=== PATIENT | female | born 1990 | race Caucasian/White ===

== ENCOUNTER 2020-06-07 17:23 | Day surgery (SDCO) | payer OTHER ==
[2020-06-07 19:36] LABS: BASOPHIL 0.6 % (0-2); EOSINOPHIL 2.8 % (0-5); HCT 41.5 % (37.0-47.0); HGB 12.9 g/dl (12.5-16.0); MCH 25.6 pg (25.0-31.0); MCHC 31.1 g/dL (32.0-36.0); MCV 82.3 fL (78.0-100.0); MONOCYTE 6.8 % (0-12); MPV 10.8 fL (6.0-9.5); NEUTROPHIL 62.5 % (41-80); NRBC 0; PLT 381 K/uL (150-400); RBC 5.04 M/uL (4.20-5.40); RDW 15.2 % (11.5-14.0); WBC 10.3 K/uL (4.0-10.5)
[2020-06-07 19:53] LABS: LACTIC ACID 1.4 mmol/L (0.4-1.9)
[2020-06-07 20:02] LABS: ALBUMIN 3.8 g/dL (3.4-5.0); BILIRUBIN - TOTAL 0.3 mg/dL (0.2-1.0); BUN/CREAT RATIO (CALC) 14.1 RATIO; C-REACTIVE PROTEIN 0.9 mg/dL (<=0.90); CREATININE 0.78 mg/dL (0.51-0.95); GLOBULIN (CALCULATION) 3.7 g/dL; POTASSIUM 3.5 mmol/L (3.5-5.1); TOTAL PROTEIN 7.5 g/dL (6.4-8.2)
[2020-06-07 20:03] LABS: BILIRUBIN NEGATIVE (NEGATIVE); BLOOD TRACE-INTACT Ery/uL (NEGATIVE); CLARITY CLEAR (CLEAR); COLOR YELLOW (YELLOW); GLUCOSE (U) NORMAL (NORMAL); LEUKOCYTES NEGATIVE Leu/uL (NEGATIVE); NITRITE NEGATIVE (NEGATIVE); PROTEIN NEGATIVE (NEGATIVE); SPECIFIC GRAVITY <=1.005 (1.001-1.030); UROBILINOGEN 0.2 mg/dL (0.2-1.0)
[2020-06-07 20:09] LABS: SQUAMOUS EPITHELIAL CELLS RARE; URINARY RBC RARE
[2020-06-07 20:47] LABS: CORONAVIRUS 2019 SARS-COV-2 NEGATIVE (NEGATIVE); INFLUENZA A NAA NEGATIVE (NEGATIVE)
[2020-06-08 00:39] LABS: FT4 (FREE T4) 0.9 ng/dL (0.76-1.46)
[2020-06-08] MEDS ORDERED: LEVOTHYROXINE200 MC1 PO (04:19)
[2020-06-08] MEDS ORDERED: INDERAL20 MG PO (04:25)
[2020-06-08 06:25] LABS: BASOPHIL 0.5 % (0-2); EOSINOPHIL 3.6 % (0-5); HCT 37.3 % (37.0-47.0); HGB 11.5 g/dl (12.5-16.0); LYMPHOCYTE 31.3 % (15-48); MCH 25.3 pg (25.0-31.0); MCHC 30.8 g/dL (32.0-36.0); MCV 82.2 fL (78.0-100.0); MONOCYTE 6.8 % (0-12); MPV 10.5 fL (6.0-9.5); NEUTROPHIL 57.5 % (41-80); NRBC 0; PLT 326 K/uL (150-400); RBC 4.54 M/uL (4.20-5.40); RDW 15.1 % (11.5-14.0); WBC 11.4 K/uL (4.0-10.5)
[2020-06-08 06:46] LABS: IRON % SATURATION 6.7 %SAT (20-50)
[2020-06-08 06:51] LABS: ALBUMIN 3.5 g/dL (3.4-5.0); BILIRUBIN - TOTAL 0.4 mg/dL (0.2-1.0); BUN/CREAT RATIO (CALC) 8.9 RATIO; CREATININE 0.79 mg/dL (0.51-0.95); GLOBULIN (CALCULATION) 3.2 g/dL; POTASSIUM 3.6 mmol/L (3.5-5.1); TOTAL PROTEIN 6.7 g/dL (6.4-8.2)
[2020-06-10 05:07] LABS: HBSAG SCREEN Negative (Negative); HEP B CORE AB, TOT Negative (Negative); HEP C VIRUS AB <0.1 (0.0-0.9)
[2020-06-10 05:13] LABS: BASOPHIL 0.6 % (0-2); HCT 38.9 % (37.0-47.0); HGB 12.2 g/dl (12.5-16.0); LYMPHOCYTE 42.5 % (15-48); MCHC 31.4 g/dL (32.0-36.0); MCV 82.8 fL (78.0-100.0); MONOCYTE 8.9 % (0-12); MPV 10.6 fL (6.0-9.5); NEUTROPHIL 44.6 % (41-80); NRBC 0; PLT 374 K/uL (150-400); RDW 15.1 % (11.5-14.0); WBC 10.9 K/uL (4.0-10.5)
[2020-06-10 05:49] LABS: BUN/CREAT RATIO (CALC) 17.4 RATIO; CREATININE 0.86 mg/dL (0.51-0.95); MAGNESIUM 2.1 mg/dL (1.8-2.4); POTASSIUM 3.7 mmol/L (3.5-5.1)
[2020-06-10] MEDS ORDERED: PREDNISONE 20MG20 MG PO (13:08)
[2020-06-10] MEDS ORDERED: NORCO 5-325 TA1 EACH PO (13:08)
--- NOTE | 2020-06-10 13:38 | NUR ---
06/10/20 Ms. Manriquez and her 2 children; 8 and 12 share a home next door to her mother. The children live between the [address] Cantor suggested psychiaric services. The benefits of psychiatry was discussed with Ms. Manriquez. She voiced understanding and reports to have seen a counselor at [facility] in the past. The difference between counseling and psychiatry was discussed. Ms. Manriquez said "not really" when asked if she has a PCP. She was educated to [facility] which is a comprehensive clinc to include: medicine, psychiatry, specialist, casemanagement, social work and transportation. - PT recommended a rw walker; patient declined.
[2020-06-10] MEDS ORDERED: VENTOLIN HFA IN18 GM INH (15:13)
== END 2020-06-10 17:00 | disposition home or self-care (01) ==
LOC: FER 17:23 → FMS 06-08 00:35
PROVIDERS: Emergency Medicine Emergency Medical Services; Internal Medicine; Nurse Practitioner; ADMIT Allergy & Immunology Allergy
DX: R06.02 Shortness of breath (principal); R39.198 Other difficulties with micturition; R53.83 Other fatigue; E03.9 Hypothyroidism, unspecified; F32.9 Major depressive disorder, single episode, unspecified; R00.0 Tachycardia, unspecified; R53.1 Weakness; R55 Syncope and collapse; Z20.822 Contact with and (suspected) exposure to COVID-19; K76.0 Fatty (change of) liver, not elsewhere classified; Z88.0 Allergy status to penicillin; Z79.899 Other long term (current) drug therapy
CPT/HCPCS: 36415; 71045; 71275; 76705; 80048; 80053; 81001; 82103; 82150; 82728; 83036; 83540; 83550; 83605; 83735; 84145; 84439; 84443; 84484; 85025; 85379; 86038; 86140; 86141; 86704; 86706; 86708; 86803; 87040; 87088; 87340; 93005; 94640; 97116; 97162; G0378; J2543; J2930; J7030; J7120; J7512; Q9967; U0002